=== PATIENT | male | born 1960 | race Caucasian/White ===

== ENCOUNTER 2017-05-26 08:50 | Emergency (ER) | payer OTHER ==
[2017-05-26] MEDS: ALBUTEROL 0.083% (NEB) 2.5 MG/3 ML AMP HHN (11:08)
[2017-05-26] MEDS: IPRATROPIUM (NEB) 0.5 MG/2.5 ML AMP HHN (11:08)
== END 2017-05-26 12:21 | disposition home or self-care (01) ==
LOC: FTE 08:50
DX: J45.901 Unspecified asthma with (acute) exacerbation (principal)
CPT/HCPCS: 94664; 99283-25

== ENCOUNTER 2018-01-26 19:03 | Emergency (ER) | payer OTHER | END 2018-01-26 21:50 | disposition home or self-care (01) | LOC: FTE 19:03 | DX: S01.502A Unspecified open wound of oral cavity, initial encounter (principal); J45.909 Unspecified asthma, uncomplicated; X58.XXXA Exposure to other specified factors, initial encounter; Y92.9 Unspecified place or not applicable | CPT/HCPCS: 99282; Z7502 ==